=== PATIENT | male | born 1965 | race Caucasian/White ===

== ENCOUNTER 2017-12-28 10:59 | Emergency (ER) | END 2017-12-28 14:05 | disposition home or self-care (01) ==

== ENCOUNTER 2018-04-09 13:07 | Emergency (ER) | END 2018-04-09 16:36 | disposition home or self-care (01) ==

== ENCOUNTER 2018-05-24 08:25 | Emergency (ER) | END 2018-05-24 09:12 | disposition home or self-care (01) ==

== ENCOUNTER 2018-07-14 07:40 | Emergency (ER) | payer OTHER ==
[~2018-07-14] VITALS: Ht 175.3 cm; Wt 110.1 kg
[~2018-07-14 07:40] MED LIST: AMOX1TAB10 PO; AZIT250T PO; BENA20TA4 PO; DIAZ5TAB PO; DOXY100T20 PO; FLUT9.9S NASAL; HYDR-4011 PO; IBUP-1542 PO; IBUP800T48 PO; LORA10TA3 PO; METF500T24 PO; NAPR-985 PO; OMEP20CA16 PO; PSEU30TA38 PO; SIMV40TA2 PO; TRAM50TA2 PO
[2018-07-14 07:43] VITALS: BP 171/111; PULSE 88; RESP 18; Ht 175.3 cm; Wt 110.1 kg
[2018-07-14] MEDS ORDERED: OXYM15SP34 NASAL (08:32)
[2018-07-14] MEDS ORDERED: AMOX1TAB10 PO (08:32)
[2018-07-14] MEDS ORDERED: IBUP-1542 PO (08:32)
[2018-07-14] MEDS ORDERED: PSEU120T11 PO (08:32)
--- NOTE | 2018-07-14 09:12 | ERD ---
ER Documentation Chief Complaint Chief Complaint cold symptoms x 3 weeks HPI This is a 53-year-old male with a history of hypertension, diabetes mellitus and hypercholesteremia presents ED with complaints of cold-like symptoms for the past 3 weeks. Patient states that he initially had a runny nose, congestion, and sore throat. Patient recently developed sinus pain, sinus pressure and headache. Patient also admits to mild cough. Denies shortness breath, trouble breathing, chest pain, nausea, vomiting, diarrhea, constipation and all other symptoms. No known drug allergies. Was seen by primary care physician and given loratadine. Patient has not taken blood pressure medication today. ROS All systems reviewed and are negative except as per history of present illness. Medications Home Meds Active Scripts Ibuprofen* (Motrin*) 600 Mg Tab, 600 MG PO Q6, #30 TAB Prov:CRISTHIAN PRATHER PA-C 07/14/18 Oxymetazoline Hcl* (Afrin [place]*) 0.05% - 15 Ml [place], 2 SPRAYS NASAL BID, #1 EA to each nostril Prov:CRISTHIAN PRATHER PA-C 07/14/18 Pseudoephedrine Hcl (Sudafe 12-Hour) 120 Mg Tablet.er, 120 MG PO BID PRN for CONGESTION for 5 Days, TAB.SA Prov:CRISTHIAN PRATHER PA-C 07/14/18 Amoxicillin/Potassium Clav (Amox-Clav 875-125 mg Tablet) 875-125 mg Tab, 1 TAB PO BID for 10 Days, #20 TAB Prov:CRISTHIAN PRATHER PA-C 07/14/18 Azithromycin* (Zithromax*) 250 Mg Tablet, 250 MG PO .ATILIO DIRECTED, #6 TAB TAKE 500 MG (2 TABS) THE FIRST DAY THEN 250 MG (1 TAB) DAYS 2-5 Prov:DAIJA RUSH PA-C 05/24/18 Fluticasone Propionate (Flonase Allergy Relief) 9.9 Ml [place].susp, 1 SPRAY NASAL DAILY, #1 BOTTLE TO EACH NOSTRIL Prov:DAIJA RUSH PA-C 05/24/18 Pseudoephedrine Hcl* (Pseudoephedrine Hcl*) 30 Mg Tablet, 30 MG PO Q6 PRN for CONGESTION, #30 TAB Prov:DAIJA RUSH PA-C 05/24/18 Ibuprofen* (Motrin*) 800 Mg Tab, 800 MG PO Q6, #30 TAB Prov:DAIJA RUSH PA-C 05/24/18 Hydrocodone/Acetaminophen ([place] 5-325 Tablet) 1 Each Tablet, 1 EACH PO Q8H PRN for PAIN, #10 TAB Prov:GINA FAIRBANKS DO 04/09/18 Ibuprofen* (Ibuprofen*) 600 Mg Tablet, 600 MG PO Q6H PRN for PAIN, #30 TAB Prov:GINA FAIRBANKS 04/09/18 Tramadol HCl (Tramadol HCl) 50 Mg Tablet, 50 MG PO Q4 PRN for SEVERE PAIN LEVEL 7-10, #20 TAB Prov:LISSETHSONJAPRISCILLA 12/28/17 Naproxen* (Naprosyn*) 500 Mg Tablet, 500 MG PO BID PRN for MILD PAIN LEVEL 1-3, #30 TAB Prov:PRISCILLA STRONG 12/28/17 Amoxicillin/Potassium Clav (Amox-Clav 875-125 mg Tablet) 875-125 mg Tab, 1 TAB PO BID for 10 Days, #20 TAB Prov:PRISCILLA STRONG 12/28/17 Diazepam* (Valium*) 5 Mg Tablet, 5 MG PO Q8 PRN for MUSCLE SPASMS, #10 TAB Prov:MITCHELL ALMENDAREZ PA-C 06/13/16 Naproxen* (Naprosyn*) 500 Mg Tablet, 500 MG PO BID PRN for PAIN AND/OR INFLAMMATION, #30 TAB Prov:MITCHELL ALMENDAREZ PA-C 06/13/16 Ibuprofen* (Motrin*) 600 Mg Tab, 600 MG PO Q6, #30 TAB Prov:BORIS STRANGE MD 12/20/14 Doxycycline Hyclate* (Doxycycline Hyclate*) 100 Mg Tablet.dr, 100 MG PO BID for 10 Days, TAB Prov:BORIS STRANGE MD 12/20/14 Reported Medications Omeprazole* (Omeprazole*) 20 Mg Capsule.dr, 20 MG PO DAILY, CAP 12/20/14 Simvastatin* (Zocor*) 40 Mg Tablet, 40 MG PO HS, TAB 12/20/14 Metformin Hcl* (Metformin Hcl*) 500 Mg Tablet, 500 MG PO BID, TAB 03/05/14 Loratadine* (Loratadine*) 10 Mg Tablet, 10 MG PO DAILY, TAB 03/05/14 Benazepril Hcl* (Benazepril Hcl*) 20 Mg Tablet, 20 MG PO BID, TAB 03/05/14 Allergies Allergies: Coded Allergies: No Known Allergy (Unverified , 07/14/18) PMhx/Soc Medical and Surgical Hx: pt denies Surgical Hx History of Surgery: No Anesthesia Reaction: No Hx Neurological Disorder: No Hx Respiratory Disorders: No Hx Cardiac Disorders: Yes (htn, cholesterol) Hx Psychiatric Problems: No Hx Miscellaneous Medical Probl: No Hx Alcohol Use: Yes Hx Substance Use: No Hx Tobacco Use: No Smoking Status: Never smoker FmHx Family History: No diabetes Physical Exam Vitals Vital Signs Date Temp Pulse Resp B/P (MAP) Pulse Ox O2 O2 Flow FiO2 Time Delivery Rate 07/14/18 97.3 88 18 171/111 93 07:43 (131) Physical Exam Physical Exam Vitals signs: Reviewed by me. General: Well developed, well nourished, in no acute distress. Patient is awake and alert. Head: Normocephalic, atraumatic. Eyes: Normal conjunctiva, Pupils PERRLA, EOM intact grossly ENT: Pharynx is clear, Moist mucous membranes, external ears, nose and mouth normal, rhinorrhea present with pink nasal mucosa, no tonsillar adenopathy, exudate or erythema, no kissing tonsils, no uvula deviation, tympanic membrane visualized bilaterally with no bulging, erythema, purulent air-fluid line seen, there is moderate tenderness to palpation when percussing the maxillary sinuses Neck: Supple, no masses, lymphadenopathy or JVD Respiratory: Clear to auscultation bilaterally with no wheezing, rhonchi, rales, no distress Cardiovascular: RRR, no murmurs, rubs, or gallops Neurologic: Alert and oriented, moving all extremities, normal speech, no focal weakness, no cerebellar signs. Normal mentation Skin: warm and dry, No rash Psych: Normal mood Procedures/MDM ER COURSE: The patient was stable throughout ED course. I kept the patient and/or family informed of laboratory and diagnostic imaging results throughout the emergency room course. The patient was promptly evaluated and a treatment plan was devised based on H&P and other data. This plan was discussed with the patient who agreed and had no further questions or concerns prior to discharge. [employer]ICAL [employer]ISION MAKIN-year-old male presents ED with complaints of sinus pain, sinus pressure and cold-like symptoms for the past 3 weeks. Given history and physical this is likely sinusitis. No evidence of ENT emergency including the not limited to retro pharyngeal abscess, peritonsillar abscess, Ludwigs, epiglottitis, mastoiditis. Patient's vitals are stable she can be managed outpatient with close follow-up. Advised patient follow up with primary care in 48 hours. Return to ED with any worsening symptoms Patient's blood pressure was also elevated in the emergency department but this is due to patient not taking blood pressure medication today. Patient was advised to take blood pressure medication as soon as he gets home. No evidence of hypertensive emergency. DISPOSITION PLAN: We discussed follow up with the patient's primary care doctor within 24 to 48 hours. Patient counseled regarding my diagnostic impression and care plan. Prior to discharge all questions answered. Pt agrees with treatment plan and understands strict return precautions. Precautionary instructions provided including instructions to return to the ER if not improving or for any worsening or changing symptoms or concerns. ExitCare instructions provided. Prior to discharge, patients vital signs have been reviewed SPECIALIST FOLLOW UP RECOMMENDED: None Patient has been advised to follow up with primary care in 1-2 days. Disclaimer: Inadvertent spelling and grammatical errors are likely due to EHR/dictation software use and do not reflect on the overall quality of patient care. Also, please note that the electronic time recorded on this note does not necessarily reflect the actual time of the patient encounter. Blood Pressure Assessment: Patient's blood pressure was elevated (>120/80) but appears stable without evidence of hypertension emergency or urgency. The patient was counseled about the risks of hypertension and urged to pursue outpatient monitoring and therapy within a week with their primary care phys hattie. Departure Diagnosis: Primary Impression: Sinusitis Sinusitis location: unspecified location Chronicity: unspecified Qualified Codes: J32.9 - Chronic sinusitis, unspecified Condition: Stable Patient Instructions: Sinuspeg Abx Tx Referrals: [facility] (PCP) Additional Instructions: Paciente aconseja volver a Departamento de urgencias inmediatamente para sntomas nuevos o que empeoran . Paciente aconseja posteriores con el PCP en 1-2 becker . Paciente verbaliza la comprehensin y est de acuerdo con el tratamiento y el curso de accin. Si el paciente no tiene ninguna de atencin primaria pueden seguir con [facility] [address] [place] [address] [facility] + [address] [address] CRISTHIAN PRATHER PA-C Jul 14, 2018 09:12
== END 2018-07-14 08:41 | disposition home or self-care (01) ==
LOC: FTE 07:40
DX: J32.9 Chronic sinusitis, unspecified (principal); I10 Essential (primary) hypertension; E11.9 Type 2 diabetes mellitus without complications; Z79.84 Long term (current) use of oral hypoglycemic drugs
CPT/HCPCS: 99283

== ENCOUNTER 2018-07-19 11:00 | Emergency (ER) | payer OTHER ==
[~2018-07-19] VITALS: Ht 172.7 cm; Wt 110.0 kg
[~2018-07-19 11:00] MED LIST changes: +OXYM15SP34 NASAL; +PSEU120T11 PO
[2018-07-19 11:16] VITALS: BP 180/99; PULSE 82; RESP 19; Ht 172.7 cm; Wt 110.0 kg
[2018-07-19] MEDS ORDERED: KETOROLAC 30 MG INJ IM STA (13:05)
[2018-07-19] MEDS ORDERED: AMOX500C2 PO (14:08)
[2018-07-19] MEDS ORDERED: AMOX1TAB10 PO (14:08)
[2018-07-19] MEDS ORDERED: D-ME118S24 PO (14:08)
--- NOTE | 2018-07-19 20:29 | ERD ---
ER Documentation Chief Complaint Chief Complaint throat and back pain x 1 week HPI 53 year-old male presents for sore throat, back pain times 1 week. Patient also states that he has been coughing a lot. He also admits to subjective fever And nasal congestion. He complains of upper back pain and neck pain. He took Motrin 600 mg at home without relief. Patient also been trying Mucinex and fluticasone without relief. He also notes that he has frontal headache and pain around his nose. Other modifying factors noted. Past medical history of hypertension, diabetes, hyperlipidemia. ROS All systems reviewed and are negative except as per history of present illness. Medications Home Meds Active Scripts D-Methorphan Hb/P-Epd HCl/Bpm (Jqfiafhiuq-Vhfvopzdufo-Tr Syr) 118 Ml Syrup, 5 ML PO Q4H PRN for COUGH for 7 Days, #1 BOTTLE Prov:GINA FAIRBANKS DO 07/19/18 Amoxicillin/Potassium Clav (Amox-Clav 875-125 mg Tablet) 875-125 mg Tab, 1 TAB PO BID for sinusitis for 5 Days, #10 TAB Prov:GINA FAIRBANKS DO 07/19/18 Ibuprofen* (Motrin*) 600 Mg Tab, 600 MG PO Q6, #30 TAB Prov:CRISTHIAN PRATHER PA-C 07/14/18 Oxymetazoline Hcl* (Afrin [place]*) 0.05% - 15 Ml [place], 2 SPRAYS NASAL BID, #1 EA to each nostril Prov:CRISTHIAN PRATHER PA-C 07/14/18 Pseudoephedrine Hcl (Sudafe 12-Hour) 120 Mg Tablet.er, 120 MG PO BID PRN for CONGESTION for 5 Days, TAB.SA Prov:CRISTHIAN PRATHER PA-C 07/14/18 Amoxicillin/Potassium Clav (Amox-Clav 875-125 mg Tablet) 875-125 mg Tab, 1 TAB PO BID for 10 Days, #20 TAB Prov:CRISTHIAN PRATHER PA-C 07/14/18 Azithromycin* (Zithromax*) 250 Mg Tablet, 250 MG PO .RobertaPACK DIRECTED, #6 TAB TAKE 500 MG (2 TABS) THE FIRST DAY THEN 250 MG (1 TAB) DAYS 2-5 Prov:DAIJA RUSH PA-C 05/24/18 Fluticasone Propionate (Flonase Allergy Relief) 9.9 Ml [place].susp, 1 SPRAY NASAL DAILY, #1 BOTTLE TO EACH NOSTRIL Prov:DAIJA RUSH PA-C 05/24/18 Pseudoephedrine Hcl* (Pseudoephedrine Hcl*) 30 Mg Tablet, 30 MG PO Q6 PRN for CONGESTION, #30 TAB Prov:DAIJA RUSH PA-C 05/24/18 Ibuprofen* (Motrin*) 800 Mg Tab, 800 MG PO Q6, #30 TAB Prov:DAIJA RUSH PA-C 05/24/18 Hydrocodone/Acetaminophen ([place] 5-325 Tablet) 1 Each Tablet, 1 EACH PO Q8H PRN for PAIN, #10 TAB Prov:GINA FAIRBANKS DO 04/09/18 Ibuprofen* (Ibuprofen*) 600 Mg Tablet, 600 MG PO Q6H PRN for PAIN, #30 TAB Prov:GINA FAIRBANKS DO 04/09/18 Tramadol HCl (Tramadol HCl) 50 Mg Tablet, 50 MG PO Q4 PRN for SEVERE PAIN LEVEL 7-10, #20 TAB Prov:PRISCILLA STRONG 12/28/17 Naproxen* (Naprosyn*) 500 Mg Tablet, 500 MG PO BID PRN for MILD PAIN LEVEL 1-3, #30 TAB Prov:PRISCILLA STRONG 12/28/17 Amoxicillin/Potassium Clav (Amox-Clav 875-125 mg Tablet) 875-125 mg Tab, 1 TAB PO BID for 10 Days, #20 TAB Prov:PRISCILLA STRONG 12/28/17 Diazepam* (Valium*) 5 Mg Tablet, 5 MG PO Q8 PRN for MUSCLE SPASMS, #10 TAB Prov:MITCHELL ALMENDAREZ PA-C 06/13/16 Naproxen* (Naprosyn*) 500 Mg Tablet, 500 MG PO BID PRN for PAIN AND/OR INFLAMMATION, #30 TAB Prov:MITCHELL ALMENDAREZ PA-C 06/13/16 Ibuprofen* (Motrin*) 600 Mg Tab, 600 MG PO Q6, #30 TAB Prov:BORIS STRANGE MD 12/20/14 Doxycycline Hyclate* (Doxycycline Hyclate*) 100 Mg Tablet.dr, 100 MG PO BID for 10 Days, TAB Prov:BORIS STRANGE MD 12/20/14 Reported Medications Omeprazole* (Omeprazole*) 20 Mg Capsule.dr, 20 MG PO DAILY, CAP 12/20/14 Simvastatin* (Zocor*) 40 Mg Tablet, 40 MG PO HS, TAB 12/20/14 Metformin Hcl* (Metformin Hcl*) 500 Mg Tablet, 500 MG PO BID, TAB 03/05/14 Loratadine* (Loratadine*) 10 Mg Tablet, 10 MG PO DAILY, TAB 03/05/14 Benazepril Hcl* (Benazepril Hcl*) 20 Mg Tablet, 20 MG PO BID, TAB 03/05/14 Allergies Allergies: Coded Allergies: No Known Allergy (Unverified , 07/19/18) PMhx/Soc History of Surgery: No Anesthesia Reaction: No Hx Neurological Disorder: No Hx Respiratory Disorders: No Hx Cardiac Disorders: Yes (htn, cholesterol) Hx Psychiatric Problems: No Hx Miscellaneous Medical Probl: Yes (DM) Hx Alcohol Use: Yes Hx Substance Use: No Hx Tobacco Use: No Physical Exam Vitals Vital Signs Date Temp Pulse Resp B/P (MAP) Pulse Ox O2 O2 Flow FiO2 Time Delivery Rate 07/19/18 97.4 82 19 180/99 97 11:16 (126) Physical Exam Const: No acute distress Head: Atraumatic Eyes: Normal Conjunctiva ENT: Normal External Ears, bilateral tympanic membrane intact without erythema or bulging noted, nose and Mouth examination normal, no tonsillar swelling or exudate noted Neck: Full range of motion. No meningismus. Resp: Mild diffuse rhonchi noted, normal respiratory effort, no use of accessory muscles. Cardio: Regular rate and rhythm, no murmurs Skin: No petechiae or rashes Ext: No cyanosis, or edema Neur: Awake and alert Psych: Normal Mood and Affect Results 24 hrs Current Medications Medications Dose Sig/Rachel Start Time Status Last (Trade) Ordered Route PRN Stop Time Admin Dose Reason Admin Ketorolac 30 mg ONCE STAT 07/19/18 DC 07/19/18 Tromethamine IM 13:05 13:10 (Toradol) 07/19/18 13:06 Procedures/MDM Medical Decision Making: Differential diagnosis includes but not limited to upper respiratory infection, pneumonia, sepsis, meningitis, acute sinusitis. Patient appeared well on physical examination, nontoxic appearing. There is mild rhonchi diffusely on lung examination. There is low suspicion for sepsis, meningitis. Chest x-ray is unremarkable, there is low suspicion for pneumonia. Patient does have tenderness over the frontal and paranasal sinuses. Consistent with a bacterial sinusitis. Patient given prescription for antibiotics and bromphed. Patient advised to follow up with PCP in 1-2 days. Patient advised to return to ED for new or worsening symptoms. Patient stable on discharge from the ED. Disclaimer: Inadvertent spelling and grammatical errors are likely due to EHR/dictation software use and do not reflect on the overall quality of patient care. Also, please note that the electronic time recorded on this note does not necessarily reflect the actual time of the patient encounter. Departure Diagnosis: Primary Impression: Sinusitis Sinusitis location: unspecified location Chronicity: unspecified Qualified Codes: J32.9 - Chronic sinusitis, unspecified Condition: Fair Patient Instructions: Sinusitis, Abx Tx Additional Instructions: Call your primary care doctor TOMORROW for an appointment during the next 1-2 days.See the doctor sooner or return here if your condition worsens before your appointment time. GINA FAIRBANKS DO Jul 19, 2018 20:29
== END 2018-07-19 14:21 | disposition home or self-care (01) ==
LOC: FTE 11:00
DX: J32.9 Chronic sinusitis, unspecified (principal); I10 Essential (primary) hypertension; E11.9 Type 2 diabetes mellitus without complications; Z79.84 Long term (current) use of oral hypoglycemic drugs
CPT/HCPCS: 71046; 96372; J1885; Z7502